=== PATIENT | male | born 1980 | race African-American/Black ===

== ENCOUNTER 2020-01-03 13:33 | Inpatient (IN) | payer MEDICAID, OTHER ==
[~2020-01-03] VITALS: Ht 179.1 cm; Wt 106.8 kg
[2020-01-03 14:07] LABS: Urine Bacteria FEW /hpf (None Seen); Urine Blood 1+ /uL (Negative); Urine Mucus FEW (None Seen); Urine Specific Gravity 1.027 (1.001-1.035); Urine WBC 2 /hpf (0 - 3)
[2020-01-03 14:27] LABS: Basophils # (auto) 0 10 ^3/uL (0-0.2); Basophils % (auto) 0.5 % (0.0-2.0); Eosinophils # (auto) 0.1 10 ^3/uL (0-0.8); Eosinophils % (auto) 0.8 % (0.0-7.0); Hematocrit 45.8 % (41.0-53.0); Hemoglobin 15.3 g/dL (13.5-17.5); Lymphocytes # (auto) 2.8 10 ^3/uL (0.4-5.4); Lymphocytes % (auto) 31.1 % (10.0-50.0); Mean Corpuscular Hemoglobin 30.7 pg (28.0-32.0); Mean Corpuscular Hgb Conc. 33.5 g/dL (32.0-36.0); Mean Corpuscular Volume 91.6 fL (80.0-100.0); Monocytes # (auto) 0.7 10 ^3/uL (0-1.3); Monocytes % (auto) 7.3 % (0.0-12.0); Neutrophils # (auto) 5.4 10 ^3/uL (1.6-8.6); Neutrophils % (auto) 60.3 % (37.0-80.0); Nucleated Red Blood Cells % 0.1 %; Platelet Count (auto) 247 10^3/uL (140-450); Red Cell Distribution Width 13.8 % (11.8-14.3)
[2020-01-03 14:47] LABS: Albumin 3.4 g/dL (3.4-5.0); BUN/Creatinine Ratio 9.1; Calcium 8.5 mg/dL (8.5-10.1); Potassium 3.8 mmol/L (3.5-5.1)
[2020-01-03 14:50] LABS: Bilirubin, Total 0.3 mg/dL (0.2-1.0); Total Protein 7.2 g/dL (6.4-8.2)
[2020-01-03] MEDS ORDERED: SODIUM CHLORIDE 0.9% 1,000 ML IVB ONE (16:08)
[2020-01-03] MEDS ORDERED: metroNIDAZOLE 500MG/100ML 100 ML IV ONE (16:30)
[2020-01-03 16:35] LABS: INR 1.03 (0.9-1.15); Partial Thromboplastin Time 28.4 sec (23.64-32.05)
[2020-01-03] MEDS ORDERED: MORPHINE SULF INJ 2 MG/ML SYRINGE 1ML IV ONE (16:45)
[2020-01-03] MEDS ORDERED: ONDANSETRON HCL 4 MG/2 ML VIAL IV ONE (16:45)
[2020-01-03] MEDS ORDERED: ACETAMINOPHEN 500 MG TAB PO PRN (18:45)
[2020-01-03] MEDS ORDERED: MORPHINE SULF INJ 2 MG/ML SYRINGE 1ML IV PRN (18:45)
[2020-01-03] MEDS ORDERED: cefTRIAXone 1GM/50ML D5W 50 ML IV ONE (18:45)
[2020-01-03] MEDS ORDERED: PROMETHAZINE HCL 25 MG/ML 1ML IV PRN (18:45)
[2020-01-03] MEDS: ENOXAPARIN SOD 40 MG/0.4 ML SYRINGE SC SCH (18:58)
[2020-01-03 20:10] VITALS: BP 131/81
--- NOTE | 2020-01-03 20:10 | NUR ---
MS admit from ER PATIENCE VANG admitted to tele/MS. Patient oriented to Tegan Centeno, primary RN, unit, room, bed, and unit policies regarding patient care and visiting hours. Patient weighed by bedscale and encouraged to call if they need something. All questions and concerns addressed, patient verbalized understanding.
[2020-01-03] MEDS: SODIUM CHLORIDE 0.9% 1,000 ML IV SCH (20:51)
[2020-01-03] MEDS: FAMOTIDINE 20 MG TAB PO SCH (22:02)
[2020-01-04] MEDS: metroNIDAZOLE 500MG/100ML 100 ML IV SCH ×3 (00:34→21:35)
[2020-01-04] MEDS: SODIUM CHLORIDE 0.9% 1,000 ML IV SCH ×2 (06:39→14:40)
--- NOTE | 2020-01-04 07:30 | NUR ---
Opening Shift Note Assumed care of patient, awake and alert. No S/S of distress/SOB or pain. Instructed on POC and to call for assist PRN, will continue to monitor for changes Q1hr and PRN. Fall precautions in place per safety protocol.
--- NOTE | 2020-01-04 07:42 | NUR ---
CLOSING NOTE- NOC SHIFT ENDORSED PATIENT CARE TO DAY SHIFT NURSE MARBELLA OSULLIVAN.
[2020-01-04 08:00] VITALS: BP 111/75
[2020-01-04] MEDS: ENOXAPARIN SOD 40 MG/0.4 ML SYRINGE SC SCH (10:00)
[2020-01-04] MEDS: cefTRIAXone 1GM/50ML D5W 50 ML IV SCH (10:28)
[2020-01-04] MEDS: FAMOTIDINE 20 MG TAB PO SCH ×2 (10:28→21:35)
--- NOTE | 2020-01-04 11:00 | NUR ---
Respiratory note: POX CHECK: SPO2 BEING MONITORED AT [facility]. HR 59, RR 14, SPO2 98% ON RA, BS CLEAR. NO SIGNS OR SYMPTOMS OF RESPIRATORY DISTRESS NOTED. RN AT BEDSIDE.
--- NOTE | 2020-01-04 12:30 | NUR ---
COVID Patient's covid results back negative. Patient will be transferred to room 231 with this nurse. Will cont to monitor patient.
--- NOTE | 2020-01-04 14:00 | NUR ---
Hospitalist at bedside MD Watkins at bedside, aware of patient status. New orders imputed by . Will carry out new orders and cont to monitor patient.
[2020-01-04 16:52] VITALS: BP 114/72
[2020-01-04] MEDS: LIDOCAINE 5% TOPICAL PATCH TOP SCH (17:36)
--- NOTE | 2020-01-04 19:15 | NUR ---
Opening Shift Note Received report from Alethea OSULLIVAN. Assumed care of patient, awake and alert. No S/S of distress/SOB or pain. Instructed on POC and to call for assist PRN, will continue to monitor for changes Q1hr and PRN.
[2020-01-04 20:00] VITALS: BP 116/60
[2020-01-04] MEDS: traMADol HCL 50 MG TAB PO PRN (21:35)
[2020-01-04 22:00] VITALS: BP 116/60
[2020-01-05] MEDS: SODIUM CHLORIDE 0.9% 1,000 ML IV SCH ×2 (00:45→10:40)
[2020-01-05] MEDS: traMADol HCL 50 MG TAB PO PRN (03:54)
--- NOTE | 2020-01-05 03:54 | NUR ---
Complains of R flank pain, Tramadol PO given. Continue care.
[2020-01-05 05:00] VITALS: BP 126/76
--- NOTE | 2020-01-05 05:00 | NUR ---
Pain level at this time is 2/10.
[2020-01-05] MEDS: metroNIDAZOLE 500MG/100ML 100 ML IV SCH (06:15)
--- NOTE | 2020-01-05 07:34 | NUR ---
Care endorsed to Lizeth OSULLIVAN.
[2020-01-05 08:00] VITALS: BP 115/57
[2020-01-05] MEDS: FAMOTIDINE 20 MG TAB PO SCH (08:49)
[2020-01-05] MEDS: cefTRIAXone 1GM/50ML D5W 50 ML IV SCH (08:49)
[2020-01-05] MEDS: ENOXAPARIN SOD 40 MG/0.4 ML SYRINGE SC SCH (08:49)
[2020-01-05] MEDS: LIDOCAINE 5% TOPICAL PATCH TOP SCH (08:54)
--- NOTE | 2020-01-05 10:19 | NUR ---
Patient still off unit for stress test. Addendum: 01/05/20 at 1020 by ANISA FALL RN RN Amended: Links added. Addendum: 01/05/20 at 1059 by ANISA FALL RN RN wrong patient
--- NOTE | 2020-01-05 12:02 | NUR ---
Discharge instructions given as ordered. Encourage to follow up with PMD as instructed. All questions and concerns addressed. Patient verbalized understanding. Medication reconciliation form completed and copy given to patient. No home medications held in Pharmacy and none returned to patient, and no needed vaccines given. IV removed with catheter intact, pressure dressing applied. Telemetry unit returned to ICU. Patient taken to front lobby via wheelchair with all personal belongings and written prescription in hand, accompanied by staff. No distress noted at time of departure.
== END 2020-01-05 12:02 | disposition home or self-care (01) | DRG 392 ==
LOC: ER 13:33 → OVERFLOW 13:34 → EAST 19:12 → TELE-EAST 01-04 00:17 → EAST 01-04 03:54
PROVIDERS: ADMIT Internal Medicine; ATTEND Internal Medicine
DX: K52.9 Noninfective gastroenteritis and colitis, unspecified (principal); M54.9 Dorsalgia, unspecified; Z03.818 Encounter for observation for suspected exposure to other biological agents ruled out; Z87.442 Personal history of urinary calculi; Z83.3 Family history of diabetes mellitus
CPT/HCPCS: 36415; 71045; 74176; 76775; 80053; 81001; 83605; 83735; 85025; 85610; 85730; 87040; 87045; 87070; 87427; 87493; 87804; 87880; 96365; 96366; G0378; J0696; J3490

== ENCOUNTER → 2020-01-18 | Outpatient (CLI) | payer OTHER ==
[2020-01-18 10:19] LABS: Basophils # (auto) 0.1 10 ^3/uL (0-0.2); Basophils % (auto) 0.8 % (0.0-2.0); Eosinophils # (auto) 0.1 10 ^3/uL (0-0.8); Hematocrit 46.7 % (41.0-53.0); Hemoglobin 15.6 g/dL (13.5-17.5); Lymphocytes # (auto) 2.8 10 ^3/uL (0.4-5.4); Lymphocytes % (auto) 33.6 % (10.0-50.0); Mean Corpuscular Hemoglobin 30.9 pg (28.0-32.0); Mean Corpuscular Hgb Conc. 33.4 g/dL (32.0-36.0); Mean Corpuscular Volume 92.6 fL (80.0-100.0); Monocytes # (auto) 0.7 10 ^3/uL (0-1.3); Monocytes % (auto) 8.8 % (0.0-12.0); Neutrophils # (auto) 4.6 10 ^3/uL (1.6-8.6); Neutrophils % (auto) 55.8 % (37.0-80.0); Nucleated Red Blood Cells % 0.1 %; Platelet Count (auto) 243 10^3/uL (140-450); Red Blood Cells 5.04 10^6/uL (4.5-5.90); Red Cell Distribution Width 13.6 % (11.8-14.3); White Blood Cell 8.2 10^3/uL (4.4-10.8)
[2020-01-18 10:35] LABS: Urine Bacteria FEW /hpf (None Seen); Urine Blood 2+ /uL (Negative); Urine Specific Gravity 1.024 (1.001-1.035); Urine WBC 1 /hpf (0 - 3)
[2020-01-18 10:53] LABS: Albumin 3.7 g/dL (3.4-5.0); Calcium 8.6 mg/dL (8.5-10.1); Potassium 4.1 mmol/L (3.5-5.1)
[2020-01-18 10:59] LABS: BUN/Creatinine Ratio 7.4; Bilirubin, Total 0.3 mg/dL (0.2-1.0); Total Protein 7.4 g/dL (6.4-8.2)
== END | disposition home or self-care (01) ==
LOC: LAB 09:59
PROVIDERS: ATTEND Nurse Practitioner
DX: I10 Essential (primary) hypertension (principal); E78.5 Hyperlipidemia, unspecified; R73.9 Hyperglycemia, unspecified
CPT/HCPCS: 36415; 80053; 80061; 81001; 83036; 84443; 85025

== ENCOUNTER 2020-02-22 19:41 | Emergency (ER) | payer OTHER ==
[~2020-02-22] VITALS: Ht 177.8 cm; Wt 106.6 kg
[2020-02-22 21:06] LABS: Basophils # (auto) 0.1 10 ^3/uL (0-0.2); Basophils % (auto) 0.7 % (0.0-2.0); Eosinophils # (auto) 0.1 10 ^3/uL (0-0.8); Eosinophils % (auto) 1.1 % (0.0-7.0); Hematocrit 43.7 % (41.0-53.0); Hemoglobin 14.4 g/dL (13.5-17.5); Lymphocytes % (auto) 33.3 % (10.0-50.0); Mean Corpuscular Hemoglobin 30.8 pg (28.0-32.0); Mean Corpuscular Volume 93.3 fL (80.0-100.0); Monocytes # (auto) 0.8 10 ^3/uL (0-1.3); Monocytes % (auto) 8.9 % (0.0-12.0); Neutrophils # (auto) 5.1 10 ^3/uL (1.6-8.6); Platelet Count (auto) 267 10^3/uL (140-450); Red Blood Cells 4.69 10^6/uL (4.5-5.90); Red Cell Distribution Width 13.6 % (11.8-14.3); White Blood Cell 9.1 10^3/uL (4.4-10.8)
[2020-02-22 21:21] LABS: Albumin 3.4 g/dL (3.4-5.0); Calcium 8.3 mg/dL (8.5-10.1); Potassium 4.1 mmol/L (3.5-5.1)
[2020-02-22 21:24] LABS: BUN/Creatinine Ratio 9.7; Bilirubin, Total 0.4 mg/dL (0.2-1.0)
[2020-02-22 22:57] VITALS: BP 105/72
== END 2020-02-22 23:04 | disposition home or self-care (01) ==
LOC: ER 19:41
DX: K52.9 Noninfective gastroenteritis and colitis, unspecified (principal); Z87.442 Personal history of urinary calculi
CPT/HCPCS: 36415; 74176; 80053; 82150; 83690; 85025

== ENCOUNTER 2020-03-09 22:25 | Emergency (ER) | payer OTHER ==
[~2020-03-09] VITALS: Ht 180.3 cm; Wt 108.9 kg
[2020-03-09 23:06] VITALS: BP 112/67
== END 2020-03-10 02:19 | disposition home or self-care (01) ==
LOC: ER 22:25
DX: Z76.0 Encounter for issue of repeat prescription (principal); K52.9 Noninfective gastroenteritis and colitis, unspecified

== ENCOUNTER 2020-03-14 09:59 | Emergency (ER) | payer OTHER ==
[~2020-03-14] VITALS: Ht 180.3 cm; Wt 108.9 kg
[2020-03-14 11:26] VITALS: BP 129/84
[2020-03-14] MEDS ORDERED: ACETAMINOPHEN 500 MG TAB PO ONE (11:45)
== END 2020-03-14 11:47 | disposition home or self-care (01) ==
LOC: ER 09:59
DX: S63.641A Sprain of metacarpophalangeal joint of right thumb, initial encounter (principal); Z87.442 Personal history of urinary calculi; X58.XXXA Exposure to other specified factors, initial encounter; Y93.89 Activity, other specified; Y92.89 Other specified places as the place of occurrence of the external cause; Y99.8 Other external cause status
CPT/HCPCS: 29125; 73130

== ENCOUNTER 2020-03-21 23:52 | Emergency (ER) | payer OTHER ==
[~2020-03-21] VITALS: Ht 180.3 cm; Wt 108.9 kg
[2020-03-22 00:41] VITALS: BP 111/67
[2020-03-22 05:05] LABS: Basophils # (auto) 0.1 10 ^3/uL (0-0.2); Basophils % (auto) 0.7 % (0.0-2.0); Eosinophils # (auto) 0.1 10 ^3/uL (0-0.8); Eosinophils % (auto) 1.5 % (0.0-7.0); Hematocrit 46.7 % (41.0-53.0); Hemoglobin 15.4 g/dL (13.5-17.5); Lymphocytes # (auto) 3.3 10 ^3/uL (0.4-5.4); Lymphocytes % (auto) 37.8 % (10.0-50.0); Mean Corpuscular Hemoglobin 30.9 pg (28.0-32.0); Mean Corpuscular Hgb Conc. 32.9 g/dL (32.0-36.0); Mean Corpuscular Volume 93.7 fL (80.0-100.0); Monocytes # (auto) 0.6 10 ^3/uL (0-1.3); Monocytes % (auto) 6.7 % (0.0-12.0); Neutrophils # (auto) 4.7 10 ^3/uL (1.6-8.6); Neutrophils % (auto) 53.3 % (37.0-80.0); Nucleated Red Blood Cells % 0.1 %; Platelet Count (auto) 231 10^3/uL (140-450); Red Blood Cells 4.98 10^6/uL (4.5-5.90); Red Cell Distribution Width 13.7 % (11.8-14.3); White Blood Cell 8.8 10^3/uL (4.4-10.8)
[2020-03-22 05:24] LABS: Albumin 3.7 g/dL (3.4-5.0); Calcium 8.3 mg/dL (8.5-10.1); Potassium 3.9 mmol/L (3.5-5.1)
[2020-03-22 05:28] LABS: BUN/Creatinine Ratio 9.7; Bilirubin, Total 0.2 mg/dL (0.2-1.0); Total Protein 7.4 g/dL (6.4-8.2)
== END 2020-03-22 03:45 | disposition left against medical advice (07) ==
LOC: ER 23:52
DX: R10.2 Pelvic and perineal pain (principal); Z53.21 Procedure and treatment not carried out due to patient leaving prior to being seen by health care provider
CPT/HCPCS: 36415; 74176; 80053; 82150; 83690; 85025

== ENCOUNTER 2020-05-09 | Emergency (ER) | payer OTHER ==
[~2020-05-09] VITALS: Ht 180.3 cm; Wt 108.9 kg
[2020-05-09 01:29] LABS: Basophils # (auto) 0 10 ^3/uL (0-0.2); Basophils % (auto) 0.5 % (0.0-2.0); Eosinophils # (auto) 0.1 10 ^3/uL (0-0.8); Eosinophils % (auto) 0.7 % (0.0-7.0); Hematocrit 44.7 % (41.0-53.0); Hemoglobin 15.1 g/dL (13.5-17.5); Lymphocytes # (auto) 3.2 10 ^3/uL (0.4-5.4); Lymphocytes % (auto) 32.6 % (10.0-50.0); Mean Corpuscular Hemoglobin 31.2 pg (28.0-32.0); Mean Corpuscular Hgb Conc. 33.8 g/dL (32.0-36.0); Mean Corpuscular Volume 92.5 fL (80.0-100.0); Monocytes # (auto) 0.8 10 ^3/uL (0-1.3); Monocytes % (auto) 8.2 % (0.0-12.0); Neutrophils # (auto) 5.7 10 ^3/uL (1.6-8.6); Nucleated Red Blood Cells % 0.1 %; Platelet Count (auto) 241 10^3/uL (140-450); Red Blood Cells 4.84 10^6/uL (4.5-5.90); Red Cell Distribution Width 13.4 % (11.8-14.3); White Blood Cell 9.8 10^3/uL (4.4-10.8)
[2020-05-09 01:44] LABS: Albumin 3.6 g/dL (3.4-5.0); Calcium 8.5 mg/dL (8.5-10.1); Potassium 3.8 mmol/L (3.5-5.1)
[2020-05-09 01:47] LABS: Bilirubin, Total 0.3 mg/dL (0.2-1.0)
[2020-05-09 02:05] LABS: Urine Bacteria NONE SEEN /hpf (None Seen); Urine Blood 2+ /uL (Negative); Urine Mucus FEW (None Seen); Urine WBC 1 /hpf (0 - 3)
[2020-05-09] MEDS ORDERED: AZITHROMYCIN 250 MG TAB PO ONE (02:45)
[2020-05-09] MEDS ORDERED: cefTRIAXone SODIUM 250 MG VL IM ONE (02:45)
[2020-05-09 02:50] VITALS: BP 120/71
[2020-05-09] MEDS ORDERED: HYDR-531 PO (15:57)
== END 2020-05-09 03:10 | disposition home or self-care (01) ==
LOC: ER 00:02
DX: R10.9 Unspecified abdominal pain (principal); Z20.2 Contact with and (suspected) exposure to infections with a predominantly sexual mode of transmission
CPT/HCPCS: 36415; 74176; 80053; 81001; 83690; 85025; 96372; 99284; J0696

== ENCOUNTER → 2020-05-13 | Day surgery (SDC) | payer OTHER ==
[2020-05-09 15:29] LABS: Basophils # (auto) 0 10 ^3/uL (0-0.2); Basophils % (auto) 0.5 % (0.0-2.0); Eosinophils # (auto) 0 10 ^3/uL (0-0.8); Eosinophils % (auto) 0.6 % (0.0-7.0); Hematocrit 44.3 % (41.0-53.0); Hemoglobin 15.1 g/dL (13.5-17.5); Lymphocytes # (auto) 2.4 10 ^3/uL (0.4-5.4); Lymphocytes % (auto) 28.8 % (10.0-50.0); Mean Corpuscular Hemoglobin 31.1 pg (28.0-32.0); Mean Corpuscular Volume 91.4 fL (80.0-100.0); Monocytes # (auto) 0.5 10 ^3/uL (0-1.3); Monocytes % (auto) 6.2 % (0.0-12.0); Neutrophils # (auto) 5.3 10 ^3/uL (1.6-8.6); Neutrophils % (auto) 63.9 % (37.0-80.0); Platelet Count (auto) 251 10^3/uL (140-450); Red Blood Cells 4.85 10^6/uL (4.5-5.90); Red Cell Distribution Width 13.6 % (11.8-14.3); White Blood Cell 8.3 10^3/uL (4.4-10.8)
[2020-05-09 15:41] LABS: INR 1.01 (0.9-1.15); Partial Thromboplastin Time 26.9 sec (23.0-31.2)
[~2020-05-13] VITALS: Ht 180.3 cm; Wt 108.9 kg
[~2020-05-13] MED LIST: HYDR-531 PO; SODIUM CHLORIDE LOCK 10 ML ONE
[2020-05-13] MEDS: diphenhdrAMINE HCL 50 MG/1 ML VL ONE ×2 (13:52→13:55)
[2020-05-13] MEDS: fentaNYL CITRATE 100 MCG/2 ML VL ONE ×3 (13:52→13:58)
[2020-05-13] MEDS: MIDAZOLAM HCL 5 MG/ML-1ML VIAL ONE ×4 (13:52→14:05)
[2020-05-13 14:50] VITALS: BP 106/64
== END | disposition home or self-care (01) ==
LOC: GI 11:55
PROVIDERS: ATTEND Internal Medicine Gastroenterology
DX: R19.4 Change in bowel habit (principal); D12.3 Benign neoplasm of transverse colon; K52.839 Microscopic colitis, unspecified; K57.30 Diverticulosis of large intestine without perforation or abscess without bleeding; K63.89 Other specified diseases of intestine; E66.9 Obesity, unspecified; Z68.33 Body mass index [BMI] 33.0-33.9, adult; Z20.828 Contact with and (suspected) exposure to other viral communicable diseases; Z79.899 Other long term (current) drug therapy; Z98.890 Other specified postprocedural states
CPT/HCPCS: 36415; 45380; 45385; 85025; 85610; 85730; 88305; J1200; J2250; J3010; J7030; U0003; 99152

== ENCOUNTER 2020-05-14 22:55 | Emergency (ER) | payer OTHER ==
[~2020-05-14] VITALS: Ht 180.3 cm; Wt 108.9 kg
[~2020-05-14 22:55] MED LIST changes: -SODIUM CHLORIDE LOCK 10 ML ONE
[2020-05-15 01:36] VITALS: BP 107/49
== END 2020-05-15 01:43 | disposition home or self-care (01) ==
LOC: ER 22:55
DX: R10.32 Left lower quadrant pain (principal); E66.9 Obesity, unspecified; Z68.33 Body mass index [BMI] 33.0-33.9, adult; Z79.899 Other long term (current) drug therapy; Z87.442 Personal history of urinary calculi; Z98.890 Other specified postprocedural states

== ENCOUNTER 2020-06-23 15:33 | Emergency (ER) | payer SELFPAY ==
[~2020-06-23] VITALS: Ht 180.3 cm; Wt 107.5 kg
[2020-06-23 15:54] VITALS: BP 113/78
[2020-06-23] MEDS ORDERED: KETOROLAC TROMETH 60MG/2ML VIAL IM ONE (16:30)
== END 2020-06-23 16:50 | disposition home or self-care (01) ==
LOC: ER 15:33
DX: S39.012A Strain of muscle, fascia and tendon of lower back, initial encounter (principal); X50.9XXA Other and unspecified overexertion or strenuous movements or postures, initial encounter; Y93.89 Activity, other specified; Y92.89 Other specified places as the place of occurrence of the external cause; Y99.8 Other external cause status
CPT/HCPCS: 72100; 96372; 99283; J1885

== ENCOUNTER 2021-03-08 08:16 | Emergency (ER) | payer BC, OTHER ==
[~2021-03-08] VITALS: Ht 177.8 cm; Wt 113.9 kg
[2021-03-08 08:57] VITALS: BP 141/86
[2021-03-08 09:09] LABS: Basophils # (auto) 0.1 10 ^3/uL (0-0.2); Basophils % (auto) 0.6 % (0.0-2.0); Eosinophils # (auto) 0.1 10 ^3/uL (0-0.8); Eosinophils % (auto) 1.1 % (0.0-7.0); Hematocrit 44.7 % (41.0-53.0); Lymphocytes # (auto) 2.5 10 ^3/uL (0.4-5.4); Lymphocytes % (auto) 27.6 % (10.0-50.0); Mean Corpuscular Hemoglobin 30.8 pg (28.0-32.0); Mean Corpuscular Hgb Conc. 33.5 g/dL (32.0-36.0); Monocytes # (auto) 0.8 10 ^3/uL (0-1.3); Monocytes % (auto) 8.3 % (0.0-12.0); Neutrophils # (auto) 5.7 10 ^3/uL (1.6-8.6); Neutrophils % (auto) 62.4 % (37.0-80.0); Red Blood Cells 4.86 10^6/uL (4.5-5.90); Red Cell Distribution Width 13.7 % (11.8-14.3); White Blood Cell 9.2 10^3/uL (4.4-10.8)
[2021-03-08 09:22] LABS: Urine Bacteria NONE SEEN /hpf (None Seen); Urine Blood 1+ /uL (Negative); Urine Specific Gravity 1.022 (1.001-1.035); Urine WBC <1 /hpf (0 - 3)
[2021-03-08 09:27] LABS: Albumin 3.3 g/dL (3.4-5.0); Calcium 8.6 mg/dL (8.5-10.1); Potassium 4.2 mmol/L (3.5-5.1)
[2021-03-08 09:30] LABS: BUN/Creatinine Ratio 12.2; Bilirubin, Total 0.4 mg/dL (0.2-1.0)
== END 2021-03-08 10:14 | disposition home or self-care (01) ==
LOC: ER 08:16
DX: R94.5 Abnormal results of liver function studies (principal); R10.12 Left upper quadrant pain; F12.10 Cannabis abuse, uncomplicated
CPT/HCPCS: 36415; 74176; 80053; 81001; 82150; 83690; 85025

== ENCOUNTER 2023-09-04 16:01 | Emergency (ER) | payer SELFPAY ==
[~2023-09-04] VITALS: Ht 175.3 cm; Wt 134.0 kg
[2023-09-04] MEDS ORDERED: CYCL-837 PO (18:22)
[2023-09-04] MEDS ORDERED: IBUP-1456 PO (18:22)
[2023-09-04 18:23] VITALS: BP 152/86; PULSE 82; RESP 18; TEMP 98.2; O2SAT 100
== END 2023-09-04 19:41 | disposition home or self-care (01) ==
LOC: EDBD 16:01 → ER 16:01
DX: S39.012A Strain of muscle, fascia and tendon of lower back, initial encounter (principal); S00.03XA Contusion of scalp, initial encounter; F15.90 Other stimulant use, unspecified, uncomplicated; Z87.442 Personal history of urinary calculi; W01.198A Fall on same level from slipping, tripping and stumbling with subsequent striking against other object, initial encounter; Y93.89 Activity, other specified; Y92.091 Bathroom in other non-institutional residence as the place of occurrence of the external cause; Y99.8 Other external cause status
CPT/HCPCS: 70450; 72100

== ENCOUNTER 2024-01-02 11:43 | Emergency (ER) | payer BC, MEDICAID ==
[~2024-01-02] VITALS: Ht 180.3 cm; Wt 138.8 kg
[~2024-01-02 11:43] MED LIST changes: +CYCL-837 PO; +IBUP-1456 PO
[2024-01-02 12:41] LABS: Urine Bacteria None Seen /hpf (None Seen)
[2024-01-02 12:49] LABS: Urine Blood 1+ /uL (Negative); Urine Clarity Clear (Clear); Urine Color Yellow (Yellow); Urine Hyaline Cast FEW /lpf (0 - 2); Urine Mucus FEW (None Seen); Urine Protein, UAD Negative (Negative); Urine Specific Gravity 1.026 (1.001-1.035); Urine Urobilinogen Normal (Negative); Urine WBC 1 /hpf (0 - 3); Urine pH 5.5 (5.0-9.0)
[2024-01-02] MEDS ORDERED: TRAM50TA2 PO (12:55)
[2024-01-02 13:15] VITALS: BP 135/86; PULSE 76; RESP 16; TEMP 98; O2SAT 97
== END 2024-01-02 13:26 | disposition home or self-care (01) ==
LOC: ER 11:43
DX: R30.0 Dysuria (principal); R33.9 Retention of urine, unspecified; F12.10 Cannabis abuse, uncomplicated; Z87.442 Personal history of urinary calculi
CPT/HCPCS: 81001

== ENCOUNTER 2024-02-10 21:58 | Emergency (ER) | payer MEDICAID ==
[~2024-02-10] VITALS: Ht 177.8 cm; Wt 131.8 kg
[~2024-02-10 21:58] MED LIST changes: +TRAM50TA2 PO
[2024-02-11 00:04] VITALS: BP 120/61; TEMP 98.5
[2024-02-11 00:05] VITALS: PULSE 75; RESP 16; O2SAT 97
== END 2024-02-11 00:34 | disposition home or self-care (01) ==
LOC: ER 21:58
DX: T16.2XXA Foreign body in left ear, initial encounter (principal); T16.1XXA Foreign body in right ear, initial encounter; F12.10 Cannabis abuse, uncomplicated; Z87.442 Personal history of urinary calculi; W44.8XXA Other foreign body entering into or through a natural orifice, initial encounter; Y93.89 Activity, other specified; Y92.89 Other specified places as the place of occurrence of the external cause; Y99.8 Other external cause status

== ENCOUNTER 2025-04-25 10:21 | Emergency (ER) | payer BC, MEDICAID ==
[~2025-04-25] VITALS: Ht 200.7 cm; Wt 122.3 kg
[2025-04-25 10:49] VITALS: BP 106/71; PULSE 70; RESP 20; TEMP 98.3; O2SAT 98
--- NOTE | 2025-04-25 11:00 | ED.PDOC ---
Back pain HPI HPI Comments 44-year-old male presents with a chief complaint of back pain x 1 week ago. Patient states that he was at [facility] last Saturday and slipped and fell backwards. Patient mentions that since the fall his back pain has been worsening each day. Patient is able to ambulate and bend over, but states that it is painful to do so. No other symptoms or modifying factors present at this time. Chief Complaint: Back Pain Time Seen by MD: 10:53 Primary Care Provider: David JONES Reviewed Notes: Medications, Allergies Allergies: Coded Allergies: NO KNOWN ALLERGIES (Unverified , 05/09/20) Home Meds Active Scripts Tramadol Hcl (Tramadol Hcl) 50 Mg Tab, 50 MG PO Q8HP PRN for 5 Days, #15 TAB Prov:MOON CLEMENTS MD 01/02/24 Ibuprofen (Ibuprofen) 800 Mg Tab, 1 TAB PO TID PRN, #30 TAB 0 Refills Prov:AYO CHRISTIANSEN 09/04/23 Cyclobenzaprine Hcl (Cyclobenzaprine Hcl) 5 Mg Tab, 1 TAB PO QPM PRN, #14 TAB 0 Refills Prov:AYO CHRISTIANSEN 09/04/23 Reported Medications Hydrocodone-Acetaminophen ([place] 10-325 mg) 1 Tab Tab, 1 TAB PO PRN, TAB 05/09/20 Information Source: Patient Mode of Arrival: Ambulatory Timing: Days Duration: Since onset Location of Back pain: (R) Flank, (R) Lumbar Severity: Moderate Prehospital treatment: None Quality: Aching Onset: Bending History of: None Past Medical History PAST MEDICAL HISTORY: Kidney Stones Surgical History: Denies all surgeries Family History Family History: Reviewed,noncontributory to illness, Family hx of HTN Social History Smoker: Non-Smoker Alcohol: Occasionally Drugs: Marijuana Lives In: Home Constitutional: denies: chills, diaphoresis, fatigue, fever, malaise, sweats, weakness, others EENTM: denies: blurred vision, double vision, ear bleeding, ear discharge, ear drainage, ear pain, ear ringing, eye pain, eye redness, hearing loss, mouth pain, mouth swelling, nasal discharge, nose bleeding, nose congestion, nose pain, photophobia, tearing, throat pain, throat swelling, voice changes, others Respiratory: denies: cough, hemoptysis, orthopnea, SOB at rest, shortness of breath, SOB with excertion, stridor, wheezing, others Cardiovascular: denies: chest pain, dizzy spells, diaphoresis, Dyspnea on exertion, edema, irregular heart beat, left arm pain, lightheadedness, palpitations, PND, syncope, others Gastrointestinal: denies: abdomen distended, abdominal pain, blood streaked bowels, constipated, diarrhea, dysphagia, difficulty swallowing, hematemesis, melena, nausea, poor appetite, poor fluid intake, rectal bleeding, rectal pain, vomiting, others Genitourinary: denies: burning, dysuria, flank pain, frequency, hematuria, incontinence, penile discharge, penile sore, pain, testicle pain, testicle swelling, urgency, others Neurological: denies: dizziness, fainting, headache, left sided numbness, left sided weakness, numbness, paresthesia, pre-existing deficit, right sided numbness, right sided weakness, seizure, speech problems, tingling, tremors, weakness, others Musculoskeletal: reports: back pain; denies: gout, joint pain, joint swelling, muscle pain, muscle stiffness, neck pain, others Integumetry: denies: bruises, change in color, change in hair/nails, dryness, laceration, lesions, lumps, rash, wounds, others Allergic/Immunocompromised: denies: Difficulty Healing, Frequent Infections, Hives, Itching, others Hematologic/Lymphatic: denies: anemia, blood clots, easy bleeding, easy bruising, swollen glands, others Endocrine: denies: excessive hunger, excessive sweating, excessive thirst, excessive urination, flushing, intolerance to cold, intolerance to heat, unexplained weight gain, unexplained weight loss, others Psychiatric: denies: anxiety, bipolar disorder, depression, hopeless, panic disorder, schizophrenia, sleepless, suicidal, others All Other Systems: Reviewed and Negative Physical Exam General Appearance: Mild Distress, Moderate Distress, Normal HEENT: Normal ENT Inspection, PERRL/EOMI, Pharynx Normal, TMs Normal Neck: Full Range of Motion, Non-Tender, Normal, Normal Inspection Respiratory: Chest Non-Tender, Lungs Clear, No Accessory Muscle Use, No Respiratory Distress, Normal Breath Sounds Cardiovascular: No Edema, No JVD, No Murmur, No Gallop, Normal Peripheral Pulses, Regular Rate/Rhythm Breast Exam: Deferred Gastrointestinal: No Organomegaly, Non Tender, No Pulsatile Mass, Normal Bowel Sounds, Soft Genitalia: Deferred Pelvic: Deferred Rectal: Deferred Extremities: No calf tenderness, Normal capillary refill, Normal inspection, Normal range of motion, Non-tender, No pedal edema Musculoskeletal : Location: Right Extremity Location: Back Apperance: Limited ROM, Tenderness: Moderate, Other (Right paravertebral muscles spastic and painful) Neurologic: Alert, precision machinist II-XII nml as Tested, No Motor Deficits, Normal Affect, Normal Mood, No Sensory Deficits Cerebellar Function: Normal Reflexes: Normal Skin: Dry, Normal Color, Warm Peripheral Pulses: 1+ carotid (R), 1+ carotid (L) Lymphatic: No Adenopathy Was a procedure done? Was a procedure done?: No Back Pain Differential Dx Differential Diagnosis: Musculoskeletal Pain X-Ray, Labs, Meds, VS Vital Signs Date Time Temp Pulse Resp B/P (MAP) Pulse Ox O2 Delivery O2 Flow Rate FiO2 04/25/25 10:49 98.3 77 20 106/71 (83) 96 98.3 04/25/25 10:49 70 20 98 Room Air 04/25/25 10:23 98.4 83 18 114/80 98 98.4 Current Medications Medications (Trade) Dose Ordered Sig/Svitlana Route Start Time Stop Time Status Last Admin Ketorolac Tromethamine (Toradol Injection) 60 mg ONCE ONCE IM 04/25/25 11:00 04/25/25 11:01 DC 04/25/25 11:01 X-Ray, Labs, Meds, VS Comment Course in the [employer] eventful patient tripped and fell while in a store and stretches back about a week ago it is not better Patient will be discharged home He will receive Toradol 60 mg IM Time of 1ST Reevaluation: 11:23 Reevaluation 1ST: Unchanged Time of 2ND Reevaluation: 11:08 Reevaluation 2ND: Improved Consultation: PCP Patient Education/Counseling: Diagnosis, Treatment, Prognosis, Need For Follow Up Family Education/Counseling: Diagnosis, Treatment, Prognosis, Need For Follow Up, No Family Present SEPSIS Sepsis Screen Date sepsis recognized/suspect: Apr 25, 2025 Time Sepsis recognized/suspect: 102 Recent Procedure: No On Antibiotic Therapy: No Respiratory Rate >20: No Heart Rate >90: No Temp<36 C (96.8 F) or >38.3 C: No SBP <90 or MAP <65 mmHG: No New Acute Mental Status Change: No Is the patient on CPAP, BIPAP,: No Vital Signs Date Time Temp Pulse Resp B/P (MAP) Pulse Ox O2 Delivery O2 Flow Rate FiO2 04/25/25 10:49 98.3 77 20 106/71 (83) 96 98.3 04/25/25 10:49 70 20 98 Room Air 04/25/25 10:23 98.4 83 18 114/80 98 98.4 Medications Medications Dose Ordered Sig/Svitlana Route Start Time Stop Time Status Last Admin Dose Admin Ketorolac Tromethamine 60 mg ONCE ONCE IM 04/25/25 11:00 04/25/25 11:01 DC 04/25/25 11:01 Departure 1 Departure Time of Disposition: 11:09 Impression: Primary Impression: Lumbar sprain Qualified Codes: S33.5XXA - Sprain of ligaments of lumbar spine, initial encounter Disposition: HOME / SELF CARE / HOMELESS Condition: Fair Additional Instructions: Local [facility] and follow up with your PCP e-Prescriptions Naproxen (Naproxen) 375 Mg Tab 375 MG PO TID for 10 Days, #30 TAB Prov: JAN GONZALEZ MD 04/25/25 Cyclobenzaprine Hcl (Cyclobenzaprine Hcl) 10 Mg Tab 10 MG PO TID for 10 Days, #30 TAB Prov: JAN GONZALEZ MD 04/25/25 Discharged With: Self Critical Care Note Critical Care Time?: No Stability Stability form required: No Heart Score Heart Score: Heart Score Response (Comments) Value History N/A 0 EKG N/A 0 Age <45 0 Risk Factors No known risk factors 0 Troponin N/A 0 Total 0 I personally scribed for JAN GONZALEZ MD ([email or web address]) on 04/25/25 at 11:00. Electronically submitted by Raul Marin ([email or web address]). JAN GONZALEZ MD Apr 25, 2025 11:00
[2025-04-25] MEDS: KETOROLAC TROMETH 60MG/2ML VIAL IM ONE (11:01)
[2025-04-25] MEDS ORDERED: NAPR-957 PO (11:11)
[2025-04-25] MEDS ORDERED: CYCL-839 PO (11:11)
== END 2025-04-25 11:17 | disposition home or self-care (01) ==
LOC: ER 10:21
DX: S33.5XXA Sprain of ligaments of lumbar spine, initial encounter (principal); F12.90 Cannabis use, unspecified, uncomplicated; F10.90 Alcohol use, unspecified, uncomplicated; Z87.442 Personal history of urinary calculi; Z79.899 Other long term (current) drug therapy; W01.0XXA Fall on same level from slipping, tripping and stumbling without subsequent striking against object, initial encounter; Y93.89 Activity, other specified; Y92.89 Other specified places as the place of occurrence of the external cause; Y99.8 Other external cause status; Y90.9 Presence of alcohol in blood, level not specified
CPT/HCPCS: 96372; 99283; J1885